=== PATIENT | female | born 1960 | race Caucasian/White ===

== ENCOUNTER 2017-05-12 12:49 | Emergency (ER) | payer OTHER ==
[~2017-05-12] VITALS: Ht 162.6 cm; Wt 74.8 kg
[~2017-05-12 12:49] MED LIST: AMBIEN 10 MG TA10 MG PO; ASPIR 8181 M1 PO; ATORVASTATIN CA40 MG PO; BACLOFEN 10MG T10 MG PO; CLONAZEPAM 0.50.5 M1 PO; CLONAZEPAM 1 MG1 M1 PO; COUMADIN 4 MG TA4 M1 PO; EFFEXOR XR150 MG PO; FOLIC ACID1 MG PO; HYDROCODONE-AP1 EAC6 PO; JANTOVEN3 MG PO; METHOTREXATE 22.5 MG PO; NEURONTIN 300300 M1 PO; PERCOCET 10-321 EAC1 PO; PERCOCET 7.5-31 EACH PO; TRILEPTAL 300300 MG PO; ZANAFLEX4 MG PO
[2017-05-12] MEDS ORDERED: NEURONTIN600 MG PO (13:03)
[2017-05-12] MEDS ORDERED: OXYCONTIN10 M1 PO (13:04)
[2017-05-12] MEDS ORDERED: LIDODERM1 EACH TOP (13:19)
[2017-05-12 14:18] VITALS: BP 132/60
== END 2017-05-12 14:20 | disposition home or self-care (01) ==
LOC: M.ERS 12:49
DX: T87.89 Other complications of amputation stump (principal); Z90.710 Acquired absence of both cervix and uterus; Z98.890 Other specified postprocedural states; Z88.5 Allergy status to narcotic agent; Z88.0 Allergy status to penicillin

== ENCOUNTER 2017-05-16 11:45 | Emergency (ER) | payer OTHER ==
[~2017-05-16] VITALS: Ht 160 cm; Wt 74.8 kg
[~2017-05-16 11:45] MED LIST changes: +LIDODERM1 EACH TOP; +NEURONTIN600 MG PO; +OXYCONTIN10 M1 PO
[2017-05-16] MEDS ORDERED: OXYCONTIN10 M1 PO (13:32)
[2017-05-16] MEDS ORDERED: PERCOCET 7.5-31 EACH PO (13:32)
[2017-05-16] MEDS ORDERED: OXYCONTIN15 MG PO (13:32)
[2017-05-16 14:00] VITALS: BP 129/102
== END 2017-05-16 14:01 | disposition home or self-care (01) ==
LOC: M.ERS 11:45
DX: G89.29 Other chronic pain (principal); Z88.0 Allergy status to penicillin; Z88.5 Allergy status to narcotic agent

== ENCOUNTER → 2018-09-26 | Outpatient (CLI) | payer OTHER ==
[~2018-09-26] MED LIST changes: +OXYCONTIN15 MG PO
== END ==
LOC: M.RAD 14:09
DX: M81.0 Age-related osteoporosis without current pathological fracture (principal); M25.561 Pain in right knee; G89.4 Chronic pain syndrome; Z89.511 Acquired absence of right leg below knee

== ENCOUNTER → 2019-06-17 | Outpatient (CLI) | payer OTHER ==
[~2019-06-17] MED LIST changes: +ENBREL50 MG/1 M1 SUBQ; +HYDROCODON-ACE1 EAC5 PO; +ONDANSETRON HCL4 M2 PO; +PREDNISONE 5 MG5 M1 PO; +VALACYCLOVIR500 MG PO
== END ==
LOC: M.PC 09:30
DX: M17.11 Unilateral primary osteoarthritis, right knee (principal); Z89.511 Acquired absence of right leg below knee

== ENCOUNTER → 2019-06-21 | Outpatient (CLI) | payer OTHER | LOC: M.RAD 08:36 | DX: M25.561 Pain in right knee (principal) ==

== ENCOUNTER → 2019-06-26 | Outpatient (CLI) | payer OTHER | END | disposition home or self-care (01) | LOC: M.PC 04:30 | DX: M54.16 Radiculopathy, lumbar region (principal); G89.29 Other chronic pain; Z98.890 Other specified postprocedural states; Z79.899 Other long term (current) drug therapy; Z88.0 Allergy status to penicillin; Z88.8 Allergy status to other drugs, medicaments and biological substances; Z79.82 Long term (current) use of aspirin ==

== ENCOUNTER → 2019-07-10 | Outpatient (CLI) | payer OTHER | LOC: M.PC 04:19 | DX: M17.11 Unilateral primary osteoarthritis, right knee (principal); Z89.9 Acquired absence of limb, unspecified; Z98.890 Other specified postprocedural states ==

== ENCOUNTER → 2020-11-27 | Outpatient (CLI) | payer OTHER | LOC: M.RAD 09:33 | PROVIDERS: ATTEND Internal Medicine | DX: R05 Cough (principal) ==